=== PATIENT | female | born 1975 | race Caucasian/White ===

== ENCOUNTER → 2018-03-24 | Outpatient (CLI) | payer OTHER ==
--- NOTE | 2018-03-25 14:50 | MM ---
Reason for exam: clinical finding. Last mammogram was performed 6 years and 3 months ago. History: Family history of breast cancer in maternal grandmother, breast cancer in 3 maternal aunts, and breast cancer in 3 maternal cousins. Took hormonal contraceptives for 1 year. Physical Findings: Nurse Summary: various movable palpables bilateral. MG Diagnostic Mammo w CAD RITU Bilateral CC and MLO view(s) were taken. Prior study comparison: December 27, 2011, CAD bilateral diagnostic mammogram. September 24, 2010, right diagnostic mammogram w/CAD. September 24, 2010, right breast ultrasound. The breast tissue is heterogeneously dense. This may lower the sensitivity of mammography. There are multiple round and oval circumscribed massed bilateral for which ultrasound will be performed. These results were verbally communicated with the patient and result sheet given to the patient on 03/24/18. ASSESSMENT: Incomplete: need additional imaging evaluation, BI-RAD 0 RECOMMENDATION: Ultrasound of both breasts. Ultrasound right breast complete, and left upper outer quadrant.
--- NOTE | 2018-03-25 15:03 | USB ---
Reason for exam: additional evaluation requested from abnormal screening. History: Family history of breast cancer in maternal grandmother, breast cancer in 3 maternal aunts, and breast cancer in 3 maternal cousins. Took hormonal contraceptives for 1 year. US Breast Limited BILAT Right complete breast ultrasound includes all four quadrants, the retroareolar region and axilla. Finding demonstrates a 0.5 x 0.6 x 0.8 cm oval mixed lesion at 12 o'clock Inc. through transmission. complicated cyst. A 1.1 x 0.5 x 1.1 cm oval cystic lesion at 7 o'clock, a 1.6 x 1.2 x 1.7 cm cystic lesion at 8 o'clock, a 3.2 x 1.2 x 1.9 cm cystic lesion at 9 o'clock, a 1.7 x 0.9 x 1.7 cm cystic lesion 9 o'clock, a 1.1 x 0.9 x 1.3 cm oval cystic lesion at 11 o'clock. Left limited breast ultrasound including focal area of concern, retroareolar and axilla demonstrates a 1.1 x 0.6 x 2.1 cm oval cystic lesion at 1 o'clock , a 1.4 x 0.6 x 1.2 cm cystic lesion at 1 o'clock, a 1.3 x 0.5 x 1.0 cm at 3 o'clock, and ductal ectasia post nipple These results were verbally communicated with the patient and result sheet given to the patient on 03/24/18. ASSESSMENT: Negative, BI-RAD 1 RECOMMENDATION: Routine screening mammogram of both breasts in 1 year.
== END | disposition home or self-care (01) ==
LOC: RADMAMWWP 14:00
PROVIDERS: ATTEND Family Medicine
DX: N64.4 Mastodynia (principal); N63.10 Unspecified lump in the right breast, unspecified quadrant
CPT/HCPCS: 77066

== ENCOUNTER 2018-05-08 07:37 | Day surgery (SDC) | payer OTHER ==
[2018-05-05 12:48] VITALS: BMI 28.3
[~2018-05-08 07:37] MED LIST: HYDROmorphone 0.5 MG/0.5 ML SYRINGE IVP PRN; LACTATED RINGERS 1,000 ML IV SCH; LIDOCAINE 1% 20 ML VIAL (10MG/ML) FOR IV START INTRADERMA PRN; ONDANSETRON 4 MG/2 ML VIAL IVP ONE; ceFAZolin IN SWFI 2 GM/20 ML SYRINGE IVP ONE
[2018-05-08] MEDS ORDERED: MIDAZOLAM 2 MG/2 ML VIAL IVP ONE (08:29)
[2018-05-08] MEDS ORDERED: fentaNYL (PF) 50 MCG/ML 2 ML AMP ONE (09:09)
[2018-05-08] MEDS ORDERED: LABETALOL 5 MG/ML VIAL MDV ONE (09:09)
[2018-05-08] MEDS ORDERED: LIDOCAINE 1% INJ 10MG/ML (20 ML MDV) ONE (09:09)
[2018-05-08] MEDS ORDERED: ROPIVACAINE 5 MG/ML 30 ML VIAL ONE (09:09)
[2018-05-08] MEDS ORDERED: SUCCINYLCHOLINE CHLORIDE 100 MG/5 ML SYR IV ONE (09:09)
[2018-05-08] MEDS ORDERED: MIDAZOLAM 2 MG/2 ML VIAL ONE (09:09)
[2018-05-08] MEDS ORDERED: PROPOFOL 10 MG/ML 20 ML VIAL IV ONE (09:09)
[2018-05-08] MEDS ORDERED: HYDROmorphone (PF) 1 MG/ML ONE (09:09)
[2018-05-08] MEDS ORDERED: diphenhydrAMINE 50 MG/ML 1 ML VIAL ONE (09:09)
[2018-05-08] MEDS ORDERED: LIDOCAINE 2% INJ 20 MG/ML SQ ONE (09:21)
[2018-05-08] MEDS ORDERED: ceFAZolin 1,000 MG in SODIUM CHLORIDE 0.9% 1,000 ML IRRIGATION ONE (09:26)
--- NOTE | 2018-05-08 10:28 | P.OP ---
Date of Procedure: 05/08/18 Preoperative Diagnosis: Comminuted intra-articular displaced fracture left distal radius Postoperative Diagnosis: Comminuted intra-articular displaced fracture left distal radius Procedure(s) Performed: Open reduction and internal fixation left distal radius Implants: Mann and nephew juan-LOC distal radius plate Anesthesia: MICKY Surgeon: Deion Healy Sign Board Erector #1: Tiff Fletcher Estimated Blood Loss (ml): 20 Pathology: none sent Condition: stable Disposition: PACU Indications for Procedure: This is a 42-year-old female that sustained a comminuted intra-articular fracture of her left distal radius. After discussing the surgical nonsurgical treatment options with her at length, I recommended an open reduction and internal fixation of her left distal radius secondary to displacement and comminution of the fracture. Informed consent was obtained Operative Findings: The operative findings are consistent with a comminuted intra-articular fracture of the left distal radius Description of Procedure: The patient was seen and evaluated in the preoperative area. The operative site was marked with a skin marker. Patient was then brought to the operating room and given 2 g of Ancef intravenously. General anesthetic was administered by the anesthesia department. Tourniquet was placed on left upper arm the left upper extremities and prepped and draped in usual sterile fashion. A universal timeout was then performed, which confirmed the patient's name, surgical site, ALLERGIES, and consent. The left upper extremity was then exsanguinated, and the tourniquet was inflated to 250 mmHg. Next a longitudinal incision was made on the volar aspect of the wrist. The flexor carpi radialis tendon was then identified and retracted to expose the pronator quadratus. Pronator quadratus was then divided and elevated to reveal the fracture site. Next the fracture was then reduced and a volar plate was then placed. This was confirmed with fluoroscopy. He and nonlocking screws then placed while using fluoroscopy to confirm there was no intra-articular placement of any of the screws. After all the screws had been placed, final fluoroscopic x-rays confirmed reduction of the fracture and good placement of the plate and screws. The wrist was then irrigated and the tourniquet was released. Hemostasis was obtained. The incision was then closed with 2-0 Vicryl followed by 4-0 nylon for the skin. Sterile dressing was applied and a well-padded volar splint was placed. Patient was then transported recovery room stable condition. The engineer second assistant PAYTON Buck was required due the complexity of the surgery the need for skilled surgical instrument maker.
[2018-05-08 11:01] VITALS: TEMP 98.2
[2018-05-08] MEDS: MEPERIDINE 50 MG/ML SYRINGE IVP ONE ×2 (11:20→11:25)
--- NOTE | 2018-05-08 11:22 | FL ---
Fluoroscopy HISTORY: Wrist fracture 1 minute 11 seconds fluoroscopy time supplied to the referring clinician. 2 intraoperative C-arm prashant ges document the procedure. See dictated report from orthopedic surgery.
--- NOTE | 2018-05-08 11:23 | XR ---
Limited left wrist HISTORY: Open reduction internal fixation 2 intraoperative C-arm images document the procedure.
[2018-05-08] MEDS ORDERED: ROPIVACAINE 5 MG/ML 30 ML VIAL MISCELLANE ONE (12:00)
[2018-05-08] MEDS ORDERED: LACTATED RINGERS 1,000 ML IV ONE (12:00)
[2018-05-08] MEDS: fentaNYL (PF) 50 MCG/ML 2 ML AMP IVP ONE ×2 (12:10→12:15)
[2018-05-08] MEDS: MIDAZOLAM 2 MG/2 ML VIAL ONE ×2 (12:32→12:41)
[2018-05-08 12:54] VITALS: RESP 18
[2018-05-08 13:23] VITALS: BP 154/60; PULSE 98
[2018-05-08] MEDS ORDERED: HYDROcodone/APAP 7.5-325MG 1 EACH TAB PO ONE (13:30)
--- NOTE | 2018-05-08 20:47 | P.ONQ ---
Anesthesiology Proc Note - PNB - Peripheral Nerve Block Performed Right Infraclavicular Single Time Out Performed: Yes Procedure Start Time: 11:44 Procedure Stop Time: :50 Indication: Acute Post-Operative Pain, Requested by physician Sedation Type: Sedate with meaningful contact maintained Preparation: Sterile Prep Position: Supine Needle Size: 50mm (2") Needle Gauge: 21 Technique: Ultrasound Injectate: 0.5% Ropivacaine (see comment for volume) (ropi .5% 20cc) Blood Aspirated: No Pain Paresthesia on Injection Noted: No Resistance on Injection: Normal Events: Uneventful and Well Tolerated
== END 2018-05-08 14:18 | disposition home or self-care (01) ==
LOC: OR 07:37
PROVIDERS: ATTEND Orthopaedic Surgery
DX: S52.572A Other intraarticular fracture of lower end of left radius, initial encounter for closed fracture (principal); W01.0XXA Fall on same level from slipping, tripping and stumbling without subsequent striking against object, initial encounter; Z87.891 Personal history of nicotine dependence; I10 Essential (primary) hypertension; F32.9 Major depressive disorder, single episode, unspecified; E03.9 Hypothyroidism, unspecified; Z79.890 Hormone replacement therapy; Z79.891 Long term (current) use of opiate analgesic; Z79.899 Other long term (current) drug therapy
CPT/HCPCS: 81025; 73100; 25608; C1713; J2001 ×2; J2250; J1200; J2175; J2405; J0690 ×2; J3010; J1170; J2795; J0330; J2704

== ENCOUNTER 2018-05-22 15:57 | Emergency (ER) | payer OTHER ==
[2018-05-22 16:09] VITALS: RESP 18
--- NOTE | 2018-05-22 16:32 | ED ---
General Adult HPI - General Source: patient, RN notes reviewed Mode of arrival: ambulatory Limitations: no limitations <Devyn Guy - Last Filed: 05/22/18 16:28> <Odilia Read P - Last Filed: 05/22/18 19:54> - General Chief complaint: Psychiatric Symptoms Stated complaint: Mental Health Time Seen by Provider: 05/22/18 16:19 - History of Present Illness Initial comments: Patient is a pleasant 42-year-old female presenting to the emergency Department with depression. Patient states she feels very overwhelmed and she has a lot of stressors at this time. Patient did have recent left wrist surgery, less than 2 weeks ago. Patient states this is feeling fine and has no complaints regarding this. Patient does not have specific plan of self-harm. No homicidal thoughts. No hallucinations. Patient does occasionally smoke marijuana which is medical. Patient does occasionally drink alcohol. Patient last drink alcohol last night. (Devyn Guy) - Related Data Home Medications Medication Instructions Recorded Confirmed Levothyroxine Sodium [Synthroid] 150 mcg PO DAILY 05/05/18 05/22/18 buPROPion HCL [Wellbutrin XL] 150 mg PO DAILY 05/05/18 05/22/18 cloNIDine HCL [Catapres] 0.2 mg PO HS 05/05/18 05/22/18 Ibuprofen [Advil] 600 mg PO Q8HR PRN 05/22/18 05/22/18 Allergies Allergy/AdvReac Type Severity Reaction Status Date / Time No Known Allergies Allergy Verified 05/22/18 16:24 Review of Systems ROS Other: All systems not noted in ROS Statement are negative. Constitutional: Denies: fever Eyes: Denies: eye pain ENT: Denies: ear pain Respiratory: Denies: cough Cardiovascular: Denies: chest pain Endocrine: Denies: fatigue Gastrointestinal: Denies: abdominal pain Genitourinary: Denies: dysuria Musculoskeletal: Denies: back pain Skin: Denies: rash Neurological: Denies: headache, weakness Psychiatric: Reports: anxiety, depression <Devyn Guy - Last Filed: 05/22/18 16:28> ROS Other: All systems not noted in ROS Statement are negative. <Odilia Read P - Last Filed: 05/22/18 19:54> ROS Statement: Those systems with pertinent positive or pertinent negative responses have been documented in the HPI. Past Medical History Past Medical History: Musculoskeletal Disorder, Thyroid Disorder Additional Past Medical History / Comment(s): fell & fx. left wrist Tuesday- wearing splint History of Any Multi-Drug Resistant Organisms: None Reported Past Surgical History: Tubal Ligation Past Anesthesia/Blood Transfusion Reactions: No Reported Reaction, Family History of Problems w/ Anesthesia Additional Past Anesthesia/Blood Transfusion Reaction / Comment(s): son had reaction to versed-very combative Past Psychological History: Anxiety, Depression Smoking Status: Former smoker Past Alcohol Use History: Occasional Past Drug Use History: Marijuana - Past Family History Mother Family Medical History: No Reported History <Devyn Guy - Last Filed: 05/22/18 16:28> General Exam Limitations: no limitations General appearance: alert, in no apparent distress Head exam: Present: atraumatic Eye exam: Present: normal appearance, PERRL ENT exam: Present: normal oropharynx Neck exam: Present: normal inspection Respiratory exam: Present: normal lung sounds bilaterally Cardiovascular Exam: Present: regular rate, normal rhythm GI/Abdominal exam: Present: soft. Absent: tenderness Extremities exam: Present: other (Left forearm splint. Distally the fingers are neurovascularly intact.) Neurological exam: Present: alert Psychiatric exam: Present: depressed Skin exam: Present: normal color. Absent: rash <Devyn Guy - Last Filed: 05/22/18 16:28> Vital Signs 05/22/18 16:04 Temperature 98.5 F Pulse Rate 118 H Respiratory 18 Rate Blood Pressure 149/104 O2 Sat by Pulse 95 Oximetry Medical Decision Making <Devyn Guy - Last Filed: 05/22/18 16:28> <Odilia Read - Last Filed: 05/22/18 19:54> - Medical Decision Making Patient care was signed out to me by Dr. Guy at 7 PM. Patient was evaluated by EPS who recommended discharge home with outpatient follow-up. Patient is agreeable to this. Discharge orders were placed. (Odilia Read) - Lab Data Lab Results 05/22/18 Range/Units 16:36 Urine Opiates Screen Not Detected (NotDetected) Ur Oxycodone Screen Not Detected (NotDetected) Urine Methadone Screen Not Detected (NotDetected) Ur Propoxyphene Screen Not Detected (NotDetected) Ur Barbiturates Screen Not Detected (NotDetected) U Tricyclic Antidepress Not Detected (NotDetected) Ur Phencyclidine Scrn Not Detected (NotDetected) Ur Amphetamines Screen Not Detected (NotDetected) U Methamphetamines Scrn Not Detected (NotDetected) U Benzodiazepines Scrn Not Detected (NotDetected) Urine Cocaine Screen Not Detected (NotDetected) U Marijuana (THC) Screen Not Detected (NotDetected) Disposition <Devyn Guy - Last Filed: 05/22/18 16:28> Is patient prescribed a controlled substance at d/c from ED?: No <Odilia eRad - Last Filed: 05/22/18 19:54> Clinical Impression: Depression Disposition: HOME SELF-CARE Condition: Good Instructions: Depression (ED) Referrals: Roxana Kunz DO [Primary Care Provider] - 1-2 days
[2018-05-22 16:55] LABS: Amphetamine Screen,Urine Not Detected (NotDetected); Barbiturate Screen,Urine Not Detected (NotDetected); Benzodiazepines Screen,Urine Not Detected (NotDetected); Cocaine Screen,Urine Not Detected (NotDetected); Methadone Screen, Urine Not Detected (NotDetected); Opiate Screen,Urine Not Detected (NotDetected); Oxycodone Screen, Urine Not Detected (NotDetected); Phencyclidine Screen,Urine Not Detected (NotDetected); Tricyclic Antidepressant,Urine Not Detected (NotDetected); Urn Cannabinoid Scrn Not Detected (NotDetected)
[2018-05-22 20:17] VITALS: BP 167/96; PULSE 108; TEMP 98
== END 2018-05-22 20:16 | disposition home or self-care (01) ==
LOC: EC 15:57
DX: F32.9 Major depressive disorder, single episode, unspecified (principal); F12.20 Cannabis dependence, uncomplicated; E07.9 Disorder of thyroid, unspecified; F41.9 Anxiety disorder, unspecified; Z87.891 Personal history of nicotine dependence; Z79.899 Other long term (current) drug therapy
CPT/HCPCS: 80306; 82075; 99284

== ENCOUNTER 2020-04-14 21:21 | Emergency (ER) | payer OTHER ==
[2020-04-14 21:30] VITALS: BP 154/90; PULSE 117; RESP 20; TEMP 98.6
[2020-04-14] MEDS ORDERED: LIDOCAINE 1% INJ 10MG/ML (20 ML MDV) SQ ONE (21:34)
[2020-04-14] MEDS ORDERED: DIPH,PERTUS(ACELL)TETVAC-LF 0.5 ML VIAL IM ONE (21:43)
--- NOTE | 2020-04-14 22:35 | ED ---
Wound/Laceration HPI - General Chief Complaint: Wound/Laceration Stated Complaint: left foot laceration Time Seen by Provider: 04/14/20 21:33 Source: patient Mode of arrival: ambulatory Limitations: no limitations - History of Present Illness Initial Comments: Patient is a 44-year-old male presenting to emergency Department with a chief complaint of laceration. Patient states this occurred about half hour prior to arrival. She would not disclose any information as to how the accident occurred. States she has a laceration the medial aspect of the left ankle. Reports this was not a twisting injury. Patient states she is not on any blood thinners. States her tetanus is not up-to-date. Reports the pain is minimal at this time. Denies taking medication to alleviate the symptoms. - Related Data Home Medications Medication Instructions Recorded Confirmed Levothyroxine Sodium [Synthroid] 150 mcg PO DAILY 05/05/18 05/22/18 buPROPion HCL [Wellbutrin XL] 150 mg PO DAILY 05/05/18 05/22/18 cloNIDine HCL [Catapres] 0.2 mg PO HS 05/05/18 05/22/18 Ibuprofen [Advil] 600 mg PO Q8HR PRN 05/22/18 05/22/18 Allergies Allergy/AdvReac Type Severity Reaction Status Date / Time No Known Allergies Allergy Verified 04/14/20 21:29 Review of Systems ROS Statement: Those systems with pertinent positive or pertinent negative responses have been documented in the HPI. ROS Other: All systems not noted in ROS Statement are negative. Past Medical History Past Medical History: Musculoskeletal Disorder, Thyroid Disorder Additional Past Medical History / Comment(s): fell & fx. left wrist Tuesday- wearing splint History of Any Multi-Drug Resistant Organisms: None Reported Past Surgical History: Tubal Ligation Past Anesthesia/Blood Transfusion Reactions: No Reported Reaction, Family History of Problems w/ Anesthesia Additional Past Anesthesia/Blood Transfusion Reaction / Comment(s): son had reaction to versed-very combative Past Psychological History: Anxiety, Depression Smoking Status: Current every day smoker Past Alcohol Use History: Occasional Past Drug Use History: Marijuana - Past Family History Mother Family Medical History: No Reported History General Exam Limitations: no limitations General appearance: alert, in no apparent distress Head exam: Present: atraumatic, normocephalic, normal inspection Eye exam: Present: normal appearance, PERRL, EOMI Pupils: Present: normal accommodation ENT exam: Present: normal exam, normal oropharynx, mucous membranes moist Neck exam: Present: normal inspection, full ROM Respiratory exam: Present: normal lung sounds bilaterally. Absent: respiratory distress, wheezes Cardiovascular Exam: Present: regular rate, normal rhythm, normal heart sounds Extremities exam: Present: full ROM, normal capillary refill, other (+2 dorsalis pedis and posterior tibialis bilaterally. Sensation intact in the left ankle.). Absent: normal inspection (Laceration measuring approximately 2 cm in the medial aspect of the left ankle.), tenderness (Minimal tenderness at the site of injury), pedal edema, joint swelling, calf tenderness Back exam: Present: normal inspection, full ROM. Absent: tenderness Neurological exam: Present: alert, oriented X3 Psychiatric exam: Present: normal affect, normal mood Skin exam: Present: warm, dry, intact, normal color Course Vital Signs 04/14/20 21:25 Temperature 98.6 F Pulse Rate 117 H Respiratory 20 Rate Blood Pressure 154/90 O2 Sat by Pulse 98 Oximetry Procedures - Laceration Laceration #1 Consent Obtained: verbal consent Indication: laceration Site: lower extremity (Left ankle) Size (cm): 2 Description: linear, clean Depth: simple, single layer Sedation/Analgesia: none Anesthetic Used: lidocaine 1% Anesthesia Technique: local infiltration Amount (mls): 3 Pre-repair: irrigated extensively, deep structures intact Type of Sutures: nylon Size of Sutures: 4-0 Number of Sutures: 3 Technique: simple, interrupted Patient Tolerated Procedure: well, no complications Medical Decision Making - Medical Decision Making patient is a 44-year-old female presenting to the emergency Department with a chief complaint of a laceration. Patient will disclose the exact reason for the caused a laceration. This was not a laceration a joint injury. Laceration site was repaired with 3 sutures. Patient tolerate the procedure well. Laceration site was thoroughly irrigated. Tetanus was updated. Return parameters were thoroughly discussed the patient was understanding and agreeable. She is neurovascularly intact. Case discussed with physician. Advised to return in 14 days for suture removal. Disposition Clinical Impression: Laceration Disposition: HOME SELF-CARE Condition: Stable Instructions (If sedation given, give patient instructions): Care For Your Stitches (DC), Laceration (DC) Additional Instructions: Return to emergency department for suture removal in 2 weeks. Is patient prescribed a controlled substance at d/c from ED?: No Referrals: Roxana Kunz DO [Primary Care Provider] - 1-2 days Time of Disposition: 22:52
== END 2020-04-14 22:56 | disposition home or self-care (01) ==
LOC: EC 21:21
DX: S91.012A Laceration without foreign body, left ankle, initial encounter (principal); E07.9 Disorder of thyroid, unspecified; F32.9 Major depressive disorder, single episode, unspecified; F41.9 Anxiety disorder, unspecified; F17.200 Nicotine dependence, unspecified, uncomplicated; Z79.890 Hormone replacement therapy; Z79.899 Other long term (current) drug therapy; X58.XXXA Exposure to other specified factors, initial encounter; Y92.009 Unspecified place in unspecified non-institutional (private) residence as the place of occurrence of the external cause
CPT/HCPCS: 90715; 99282; 12001; 90471; J2001

== ENCOUNTER 2020-10-21 18:37 | Emergency (ER) | payer OTHER ==
[2020-10-21 18:42] VITALS: BP 146/93; PULSE 66; RESP 18; TEMP 97.6
[2020-10-21] MEDS ORDERED: AMOXICILLIN 500MG STARTER PACK 3 CAP BTL PO STA (19:18)
[2020-10-21] MEDS ORDERED: LORATADINE 10 MG TAB PO STA (19:18)
--- NOTE | 2020-10-21 19:20 | ED ---
ENT HPI - General Chief complaint: ENT Stated complaint: ear pain Time Seen by Provider: 10/21/20 18:55 Source: patient Mode of arrival: ambulatory Limitations: no limitations - History of Present Illness Initial comments: 45-year-old female presenting today for chief complaint of left ear pain. Patient states she's had left ear pain for the past 2 days. She states she also has a sore throat. Patient denies any fevers she denies any neck stiffness cough , shorts of breath or chest pain. Patient states she has had some nasal congestion. Patient denies sinus pressure. Patient denies additional complaints upon arrival she appears nontoxic no acute distress - Related Data Home Medications Medication Instructions Recorded Confirmed Levothyroxine Sodium [Synthroid] 150 mcg PO DAILY 05/05/18 05/22/18 buPROPion HCL [Wellbutrin XL] 150 mg PO DAILY 05/05/18 05/22/18 cloNIDine HCL [Catapres] 0.2 mg PO HS 05/05/18 05/22/18 Ibuprofen [Advil] 600 mg PO Q8HR PRN 05/22/18 05/22/18 Previous Rx's Medication Instructions Recorded Amoxicillin 500 mg PO Q12HR 7 Days #14 cap 10/21/20 Allergies Allergy/AdvReac Type Severity Reaction Status Date / Time No Known Allergies Allergy Verified 10/21/20 18:43 Review of Systems ROS Statement: Those systems with pertinent positive or pertinent negative responses have been documented in the HPI. ROS Other: All systems not noted in ROS Statement are negative. Past Medical History Past Medical History: Musculoskeletal Disorder, Thyroid Disorder Additional Past Medical History / Comment(s): fell & fx. left wrist Tuesday- wearing splint History of Any Multi-Drug Resistant Organisms: None Reported Past Surgical History: Tubal Ligation Past Anesthesia/Blood Transfusion Reactions: No Reported Reaction, Family History of Problems w/ Anesthesia Additional Past Anesthesia/Blood Transfusion Reaction / Comment(s): son had reaction to versed-very combative Past Psychological History: Anxiety, Depression Smoking Status: Current every day smoker Past Alcohol Use History: Occasional Past Drug Use History: Marijuana - Past Family History Mother Family Medical History: No Reported History General Exam - General Exam Comments Initial Comments: General: The patient is awake and alert, in no distress Eye: +3 mm pupils are equal, round and reactive to light, extra-ocular movements are intact. No nystagmus. There is normal conjunctiva bilaterally. No signs of icterus. Ears, nose, mouth and throat: There are moist mucous membranes and no oral lesions. Left TM erythematous. There is no effusion external auditory canal within normal limits right tympanic membrane and extraocular canal within normal limits.mastoids are nontender and nonerythematous bilaterally. Oropharynx is mildly erythematous no tonsillar exudates or enlargement appreciated. Some postnasal drip is appreciated. Neck: The neck is supple, there is no tenderness or JVD. Cardiovascular: There is a regular rate and rhythm. No murmur, rub or gallop is appreciated. Respiratory: Lungs are clear to auscultation, respirations are non-labored, breath sounds are equal. No wheezes, stridor, rales, or rhonchi. Musculoskeletal: Normal ROM, no tenderness. Strength 5/5. Sensation intact. Radial and DP pulses equal bilaterally 2+. Neurological: A&O x 3. CN II-XII intact grossly, There are no obvious motor or sensory deficits. Coordination appears grossly intact. Speech is normal. Skin: Skin is warm and dry and no rashes or lesions are noted. Psychiatric: Cooperative, appropriate mood & affect, normal judgment. Limitations: no limitations Course Vital Signs 10/21/20 18:40 Temperature 97.6 F Pulse Rate 66 Respiratory 18 Rate Blood Pressure 146/93 O2 Sat by Pulse 98 Oximetry Medical Decision Making - Medical Decision Making 45-year-old female with upper respiratory symptoms. Left tympanic membrane is concerning for otitis media. Patient was treated oral antibiotics. covid testing negative. No signs of mastoiditis. Patient will be discharged with pcp f/u. patient agreeable to this care plan and discharge. - Lab Data Lab Results 10/21/20 Range/Units 19:28 Coronavirus (PCR) Not Detected (Not Detectd) Disposition Clinical Impression: Left ear pain, Otitis media, Acute viral pharyngitis Disposition: HOME SELF-CARE Condition: Good Instructions (If sedation given, give patient instructions): Earache (ED) Additional Instructions: Please use medication as discussed. Please follow-up with family doctor in the next 2 days. Please return to emergency room if the symptoms increase or worsen or for any other concerns. Prescriptions: Amoxicillin 500 mg PO Q12HR 7 Days #14 cap Is patient prescribed a controlled substance at d/c from ED?: No Referrals: Roxana Kunz DO [Primary Care Provider] - 1-2 days Time of Disposition: 19:20
== END 2020-10-21 19:46 | disposition home or self-care (01) ==
LOC: EC 18:37
DX: H66.92 Otitis media, unspecified, left ear (principal); J02.9 Acute pharyngitis, unspecified; E07.9 Disorder of thyroid, unspecified; F17.210 Nicotine dependence, cigarettes, uncomplicated; Z79.890 Hormone replacement therapy
CPT/HCPCS: 87635; 99282

== ENCOUNTER → 2021-02-26 | Outpatient (CLI) | payer OTHER ==
--- NOTE | 2021-02-26 13:24 | XR ---
EXAMINATION TYPE: XR wrist complete LT DATE OF EXAM: 02/26/2021 COMPARISON: NONE HISTORY: History of left wrist surgery. R52 Pain. Pain when grasping/squeezing hand. TECHNIQUE: 4 views of the left wrist are obtained. AP, oblique, and lateral views were obtained with patient making a fist. Scaphoid view of the left wrist was obtained as well. FINDINGS: There is plate and screw fixation hardware of the left distal radius with no evidence of bradford rdware fracture or significant loosening. There is no acute fracture or dislocation. Alignment is rita ntained. There is a normal scapholunate interval. Mild degenerative change at the distal radioulnar j oint. No significant degenerative change of the carpal bones. Normal mineralization. No significant s oft tissue swelling. IMPRESSION: 1. Postsurgical fixation of the left distal radius with no evidence of hardware failure. 2. No acute osseous abnormality. 3. Normal alignment. 4. Mild degenerative change at the distal radioulnar joint.
== END | disposition home or self-care (01) ==
LOC: RADXRMAIN 10:11
PROVIDERS: ATTEND Family Medicine
DX: M19.032 Primary osteoarthritis, left wrist (principal)

== ENCOUNTER → 2021-03-20 | Outpatient (CLI) | payer OTHER ==
--- NOTE | 2021-03-24 14:07 | MM ---
Reason for exam: clinical finding. Last mammogram was performed 1 year and 6 months ago. History: Family history of breast cancer in maternal grandmother, breast cancer in 3 maternal aunts, and breast cancer in 3 maternal cousins. Took hormonal contraceptives for 1 year. Physical Findings: Nurse did not find any significant physical abnormalities on exam. MG Diagnostic Mammo w CAD RITU Bilateral CC and MLO view(s) were taken. Prior study comparison: September 24, 2019, bilateral MG diagnostic mammo w CAD RITU. The breast tissue is heterogeneously dense. This may lower the sensitivity of mammography. There is chronic nodularity bilaterally. No significant new findings when compared with previous films. These results were verbally communicated with the patient and result sheet given to the patient on 03/20/21. ASSESSMENT: Incomplete: need additional imaging evaluation, BI-RAD 0 RECOMMENDATION: Ultrasound of the right breast.
--- NOTE | 2021-03-24 14:08 | USB ---
Reason for exam: additional evaluation requested from abnormal screening. History: Family history of breast cancer in maternal grandmother, breast cancer in 3 maternal aunts, and breast cancer in 3 maternal cousins. Took hormonal contraceptives for 1 year. US Breast Limited RT Right limited breast ultrasound including focal area of concern, retroareolar and axilla demonstrates a 0.9 x 0.5 x 0.6cm cystic lesion with septations at 6 o'clock. These results were verbally communicated with the patient and result sheet given to the patient on 03/20/21. ASSESSMENT: Probably benign, BI-RAD 3 RECOMMENDATION: Ultrasound of the right breast in 6 months. (at area of concern 6 'clock zone A)
== END | disposition home or self-care (01) ==
LOC: RADMAMWWP 14:09
PROVIDERS: ATTEND Family Medicine
DX: R92.8 Other abnormal and inconclusive findings on diagnostic imaging of breast (principal); N63.0 Unspecified lump in unspecified breast; Z85.3 Personal history of malignant neoplasm of breast
CPT/HCPCS: 77066